=== PATIENT | female | born 1995 | race Caucasian/White ===

== ENCOUNTER 2024-06-20 11:24 | Outpatient (RCR) | payer OTHER, SELFPAY | END 2024-06-20 23:59 | disposition home or self-care (01) | LOC: RPT 11:24 | PROVIDERS: ATTENDING PHYSICIAN Internal Medicine; FAMILY PHYSICIAN Family Medicine | DX: R10.2 Pelvic and perineal pain (principal); R15.9 Full incontinence of feces; M62.89 Other specified disorders of muscle; N94.2 Vaginismus; Z73.6 Limitation of activities due to disability | CPT/HCPCS: 97010; 97110; 97112; 97140; 97162; 97530 ==

== ENCOUNTER 2024-07-14 10:07 | Outpatient (RCR) | payer OTHER, SELFPAY | END 2024-07-14 23:59 | disposition home or self-care (01) | LOC: RPT 10:07 | PROVIDERS: ATTENDING PHYSICIAN Internal Medicine; FAMILY PHYSICIAN Family Medicine | DX: R15.9 Full incontinence of feces (principal); M62.89 Other specified disorders of muscle; R10.9 Unspecified abdominal pain; N94.2 Vaginismus; Z73.6 Limitation of activities due to disability | CPT/HCPCS: 97110; 97112; 97140; 97530 ==

== ENCOUNTER → 2024-12-21 09:07 | Outpatient (REF) | payer OTHER, SELFPAY | LOC: RCS 09:07 | PROVIDERS: ATTENDING PHYSICIAN Internal Medicine Cardiovascular Disease; FAMILY PHYSICIAN Family Medicine; REFERRING PHYSICIAN Psychiatry & Neurology Forensic Psychiatry | DX: R00.2 Palpitations (principal) | CPT/HCPCS: 93306 ==

== ENCOUNTER → 2024-12-25 09:07 | Outpatient (REF) | payer OTHER, SELFPAY | LOC: RCS 09:07 | PROVIDERS: ATTENDING PHYSICIAN Internal Medicine Cardiovascular Disease; FAMILY PHYSICIAN Family Medicine | DX: R06.09 Other forms of dyspnea (principal) | CPT/HCPCS: 93017 ==

== ENCOUNTER 2025-01-20 06:45 | Inpatient (IN) | payer OTHER, SELFPAY ==
[2025-01-20] VITALS (8 sets, daily range): BP systolic 104–136; BP diastolic 70–97; BMI 38.0; BMI 37.9
[2025-01-20 01:30] LABS: % Basophils 0.7 % (0-2); % Eosinophils 3.6 % (0-6); % Immature Granulocytes 0.2 % (0-0.5); % Lymphocytes 47.5 % (20.5-51.1); % Monocytes 7.3 % (1.7-9.3); % Neutrophils 40.7 % (42.2-75.2); Absolute Basophils 0.1 10^3/uL (0-0.2); Absolute Eosinophils 0.3 10^3/uL (0-0.7); Absolute Lymphocytes 4.3 10^3/uL (1.2-3.4); Absolute Monocytes 0.7 10^3/uL (0.1-0.6); Absolute Neutrophils 3.7 10^3/uL (1.4-6.5); Hematocrit 43.4 % (37.0-47.0); Hemoglobin 14.3 g/dL (12.0-16.0); Mean Corp Hgb Conc. 32.9 g/dL (33.0-37.0); Mean Corpuscular Hgb 28.7 pg (27.0-31.0); Mean Platelet Volume 9.7 fL (7.4-10.4); Nucleated Red Blood Cells % 0 %; Platelet Count 344 10^3/uL (130-400); Red Blood Cell Count 4.99 10^6/uL (4.20-5.40); White Blood Cell Count 9.1 10^3/uL (4.8-10.8)
[2025-01-20 01:39] LABS: HCG, Serum Qualitative Screen Negative
[2025-01-20 01:43] LABS: ALT (SGPT) 161 U/L (0-35); AST (SGOT) 195 U/L (14-36); Albumin 4.4 g/dl (3.5-5.0); Alkaline Phosphatase 163 U/L (38-126); Blood Urea Nitrogen 15 mg/dl (7-17); Calcium 9.8 mg/dl (8.4-10.2); Carbon Dioxide 21 mmol/L (22-30); Chloride 104 mmol/L (98-107); Glucose 100 mg/dl (70-99); Lipase 170 U/L (23-300); Sodium 138 mmol/L (135-145); Total Bilirubin 3.3 mg/dl (0.2-1.3); Total Protein 8.2 g/dl (6.3-8.2); eGFR > 60.00
--- NOTE | 2025-01-20 05:23 | ED.GENMED ---
History of Present Illness
General
Chief Complaint: Abdominal Pain
Source: patient
Exam Limitations: none
Time Seen by Provider: 01/20/25 04:56
Nursing documentation reviewed up to this point in time: agreed with
History of Present Illness
History of Present Illness:
This is a 29-year-old obese woman with history of GERD, anxiety/depression. She complains of several month history of intermittent episodes of epigastric pain, usually occurs at nighttime versus first thing in the morning, accompanied with nausea,
lasts several hours then resolves. She had similar episode 24 hours ago waking her from sleep that was severe in nature associated with nausea and multiple episodes of vomiting. Generalized upper abdominal pain radiated to her shoulders. Pain has
markedly improved, she does continue with mild epigastric ache, no further nausea nor vomiting and has not had a fever but she is concerned this evening with her urine being quite dark in color and also notes generalized itching without a rash that
began tonight.
Her daily medications include: Omeprazole, Seroquel, Lexapro, iron, B12, vitamin C, vitamin D, control pills
Last menstrual period January 02, normal and on time.
Past History
Past History
ED Past Medical History: GERD (Hiatal hernia), Psychiatric and Other (Bipolar disorder, depression)
ED Past Surgical History: None
Social History
Tobacco: Non-smoker
Alcohol: None
Drug: None
Personal: Single
Living: with family
Employment: Employed
Family History
Family History: Other (Noncontributory)
Phy Exam
Physical Exam
Physical Exam:
GENERAL: 29-year-old overweight woman appears her stated age, bright and alert, pleasant, appears in no acute distress.
EYE: pupils equal and reactive. Very minimally icteric.
NECK: Supple, nontender, no meningismus, no significant adenopathy.
ENT: oral mucosa is moist. No rhinorrhea.
CARDIAC: Regular rate and rhythm. no murmur.
LUNGS: Clear breath sounds bilaterally, no acute respiratory distress, no wheezes/rales/rhonchi
ABDOMEN: Soft, nondistended, mild tenderness palpation epigastric region as well as mildly to the right upper quadrant, no r/g, no cvat. normoactive BS.
NEUROLOGICAL: Alert and oriented x3, no focal neuro deficits. Gait is steady.
SKIN: Warm and dry, normal color, skin intact. No rash.
MUSCULOSKELETAL: No C/C/E. peripheral pulses are full and equal b/l. No palpable tenderness.
PSYCH: Normal and appropriate interaction.
Course
Orders/Labs/Results
Orders:
Orders
01/20/25 01:08
Test Result ONCE
01/20/25 01:16
Complete Blood Count/With Diff Urgent
Comprehensive Metabolic Panel Urgent
HCG, Serum Qualitative Screen Urgent
Lipase Urgent
01/20/25 04:15
US Abdomen Complete/Upper Urgent
Comment:
Reason For Exam: upper abd pain, liver enz elevated
Abnormal Lab Results
01/20/25
01:16
MCHC 32.9 L g/dL
(33.0-37.0)
Absolute Lymphs (auto) 4.3 H 10^3/uL
(1.2-3.4)
Absolute Monos (auto) 0.7 H 10^3/uL
(0.1-0.6)
Neutrophils % 40.7 L %
(42.2-75.2)
Carbon Dioxide 21 L mmol/L
(22-30)
Glucose 100 H mg/dl
(70-99)
Total Bilirubin 3.3 H mg/dl
(0.2-1.3)
AST 195 H U/L
(14-36)
ALT 161 H U/L
(0-35)
Alkaline Phosphatase 163 H U/L
(38-126)
01/20/25 01:16
03/01/25 01:16
Vital Signs
Initial and Last Documented VS:
Initial Vital Signs
Temp Pulse Resp BP Pulse Ox
98.8 F 81 20 136/97 99
01/20/25 01:01 01/20/25 01:01 01/20/25 01:01 01/20/25 01:01 01/20/25 01:01
Last Documented Vital Signs
Temp Pulse Resp BP Pulse Ox
97.8 F 66 18 136/79 96
01/20/25 04:11 01/20/25 04:11 01/20/25 04:11 01/20/25 04:11 01/20/25 04:11
MDM/Problems Addressed
Differential Diagnosis Includes:
Concern for biliary colic, cholecystitis, pancreatitis, gastritis, gastroenteritis.
Labs are remarkable for elevated LFTs in the 160s, elevated bilirubin of 3.3, elevated alkaline phosphatase. CBC is normal. Lipase is normal.
Due to elevated LFTs concern for cholecystitis, choledocholithiasis, abdominal ultrasound obtained.
Ultrasound shows cholelithiasis but no evidence of cholecystitis, no definitive evidence of choledocholithiasis with normal common bile duct of 5 mm.
With elevated LFTs and elevated bilirubin, there is still some concern for occult choledocholithiasis.
Case discussed with general surgery who recommends patient be evaluated by GI first especially with concern for potential choledocholithiasis.
Will admit to hospitalist service.
Will initiate IV antibiotic for coverage of potential cholecystitis. Will initiate IV fluids.
*Radiology
Radiology exam reviewed: radiology read reviewed
*Pulse Oximetry
Patient hypoxic: no
*Critical Care Note
Total Time (30-74mins, 75-104mins- exclusive of procedures): Not Applicable
ED Attending Note
-
Portions of this chart may have been created with voice recognition software.� Occasional wrong word or��sound alike� substitutions may have occurred due to the inherent limitations of voice recognition software.
Discharge Plan
Departure
Patient Disposition: Admit
Date of Disposition: 01/20/25
Time of Disposition: 05:25
Admit to: Med/Surg
Admit to doctor: Maribel
Presentation/result/management discussed w/ accepting MD/DO: Hospitalist
Condition: Fair
Discharge Problem:
Cholelithiasis, Concern for common bile duct stone, Concern for cholecystitis
Referrals:
Simi Rausch DO [Family Provider] -
Interventions
Interventions:
*Risk Screen - Suicide Last Done: 01/20/25 01:01
*General Assessment Last Done: 01/20/25 04:11
*Neglect/Abuse Screening Last Done: 01/20/25 04:11
ED- Fall Risk Assessment Last Done: 01/20/25 04:11
*ED COVID-19 Vaccine History Last Done: 01/20/25 04:11
CJ-Wdzwwd-Pqqrfgdijs Assessment Last Done: 01/20/25 04:11
Discharge Date and Time
Print Language: SAMOAN
[2025-01-20] MEDS: ZOSYN 100 IV (05:43)
[2025-01-20] MEDS: NSS 1000 IV (05:46)
--- NOTE | 2025-01-20 05:59 | HPS.HSE ---
Family Physician
-
Family Physician: Simi Rausch
Chief Complaint
-
Abdominal pain
History of Present Illness
This is a 29-year-old with past medical history significant for bipolar/anxiety and GERD who presents to the emergency department with acute worsening of abdominal discomfort.
Patient reports history of intermittent abdominal pain/attacks throughout the last several months. She describes this usually resolves on their own with some treatment such as application of a warm pad. She reports that she had a similar episode
last night that was more severe with epigastric pain radiating to the back and associated with nausea and vomiting. She applied her usual measures including warm pads in her epigastric region without any improvement in her pain. The vomiting was
nonbloody and nonbilious. This a.m. she felt slightly improved but the pain recurred. At this time she noticed that she had generalized pruritus and dark-colored urine. She denies any changes to the color of her skin or eyes.
She denies having any diarrhea. She denies fevers or chills. She denies any urinary symptoms. She denies having any chest pain.
On arrival in the emergency department she reports afebrile, blood pressure was normal at 136/79 with a pulse of 76 and she was satting 100% on room air. CBC was unremarkable, electrolytes BUN/creatinine were also unremarkable. She had significant
LFT abnormalities with total bilirubin of 3.3, elevations of AST to 195 and ALT to 160 as well as alk phos 160. Lipase was negative.
Right upper quadrant ultrasound showing an enlarged liver measuring about 19 cm, cholelithiasis without cholecystitis, negative Mena sign and a common bile duct that is normal at 5 mm. No obvious biliary duct stones.
Medical History
Past Medical History
Past Medical History: Reports GERD, Psychiatric (Bipolar, anxiety/depression, OCD) and Other (restless leg syndrome)
Past Surgical History: Reports Other (tooth extraction)
Social History
Tobacco: Non-smoker
Alcohol: Former
Drug: None
Personal: Single
Living: With Family
Employment: Employed
Family History
Family History: Not pertinent
Allergies / Home Medications
Allergies reflects when Allergies were last updated in [employer].
Home Medications with original date entered in [employer]
Allergy/Medication List:
Allergies
Allergy/AdvReac Type Severity Reaction Status Date / Time
codeine Allergy psychosis Verified 04/19/23 11:08
Quetiapine 200 mg tablet, 200 mg p.o. every morning, 400 mg p.o. nightly
Lexapro 20 mg tablet, 20 mg p.o. daily
Omeprazole 20 mg tablet, 20 mg p.o. daily
Review of Systems
-
History Source: Patient
Constitutional: Reports No Symptoms
EENT: Reports No Symptoms
Respiratory: Reports No Symptoms
Cardiac: Reports No Symptoms
Abdomen/GI: Reports Abdominal Pain, Nausea and Vomiting
: Reports No Symptoms
Musculoskeletal: Reports No Symptoms
Skin: Reports No Symptoms
Neurological: Reports No Symptoms
Endocrine: Reports No Symptoms
Hematologic/Lymphatic: Reports No Symptoms
Psych: Reports No Symptoms
Physical Exam
Vital Signs
Vital Signs
Temp Pulse Resp BP Pulse Ox
97.8 F 66 18 113/71 99
01/20/25 04:11 01/20/25 04:11 01/20/25 04:11 01/20/25 05:00 01/20/25 05:45
Physical Exam
General: Well Developed, Well Nourished, No Apparent Distress and Comfortable
HEENT: NormoCephalic, Anicteric, Moist mucous membranes and Atraumatic
Respiratory: Clear
Cardiac: S1/S2 and Regular Rhythm
Breast: Deferred by me
GI: Soft, Non Tender, Non Distended and Normal Bowel Sounds
Rectal: Deferred by Provider
Genito-urinary: Deferred by me
Musculoskeletal: No Clubbing, No Cyanosis and No Edema
Skin: Warm
Neuro: AO x 3 and Nonfocal/grossly intact
Hematologic/Lymphatic: No Lymphadenopathy
Psych: Calm
Laboratory Results
-
01/20/25 01:16
01/20/25 01:16
Laboratory Results
Total Bilirubin 3.3 mg/dl (0.2-1.3) H 01/20/25 01:16
AST 195 U/L (14-36) H 01/20/25 01:16
ALT 161 U/L (0-35) H 01/20/25 01:16
Alkaline Phosphatase 163 U/L (38-126) H 01/20/25 01:16
Lipase 170 U/L (23-300) 01/20/25 01:16
Data Reviewed
-
Ultrasound: Report Reviewed by me
Lab Data: Labs Reviewed by me
Old Records: Reviewed
Impression/Plan
-
IMPRESSION:
29 y.o with cholelithiasis and elevated LFTs with cholestatic pattern concerning for choledocholithiasis. No evidence of acute cholecystitis. Does not meet criteria for acute cholangitis.
PLAN:
Cholelithiasis with possible choledocholithiasis - So far lipase negative, possible there was a transient stone given normal CBD on u/s
- admit to med/surg
- clear liquid diet for now
- trend lfts
- mrcp in am
- blood cultures if spike
- abx started in ED, does not meet criteria for peritonitis, will continue w/ ceftriaxone/flagyl for now
- IV fluids
- GI consult
- surgery consult
Psych
- continue lexapro and quetiapine
- h/o psychosis with codeine, monitor carefully on pain meds, toradol for moderate pain, dilaudid 0.25 if severe pain
DVT PPX - lovenox sq
Code status - Full Code
--- NOTE | 2025-01-20 07:40 | PTCARENOTE ---
Received patient from ED. Patient here with Cholelithiasis. Awaiting MRI.
[2025-01-20] MEDS: LR 1000 IV (08:04)
--- NOTE | 2025-01-20 09:15 | W.PN.UPDATE ---
Update Note
Progress Note Update
29-year-old female presented with abdominal pain she also noticed pruritus and also dark urine LFTs were found to be elevated in the ER
EKG reviewed by me-sinus rhythm QTc 441
Ultrasound-cholelithiasis, borderline hepatomegaly CBD, 5 mm
CVS: S1-S2 normal
Chest: CTA B/L
Abdomen: Soft, NT / Bowel sounds present
Extremities: No edema, normal pulses
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
# Cholelithiasis with biliary colic
On clears
MRI/MRCP ordered
Continue antibiotics, IV fluids
Benadryl for itching
Surgery and GI consulted
# Bipolar disease/anxiety
Severe depression on screening
Continue Lexapro, Seroquel
History of psychosis with codeine-need to be careful with narcotics
Psychiatric evaluation
# History of abnormal thyroid function test-repeat
# Obesity per BMI criteria
# DVT prophylaxis-Lovenox
# Full code
Discussed with nursing
Discussed with sister at bedside
Discussed with GI
Discussed with surgeon
[2025-01-20] MEDS: FLAGYL 500 MG 100 IV ×2 (09:27→21:05)
[2025-01-20] MEDS: BENADRYL 25 MG PO (11:52)
--- NOTE | 2025-01-20 12:28 | CON.GS ---
Consultation
-
Date/Time Consultation Requested: 01/20/25 3233
Requesting Provider: Darryn
Reason for Consultation: Cholelithiasis
Medical History
-
Chief Complaint: RUQ pain
History of Present Illness:
Ms Zimmer is a 29 yo female with a h/o bipolar/anxiety, GERD who presented through the ED with upper abdominal discomfort. She notes that over the past months, she has had intermittent attacks of epigastric pain radiating into her back. Yesterday,
she had another episode which felt more severe and was accompanied by nausea and vomiting. She presented through the ED for evaluation as her pain initially improved but then returned quickly unlike prior episodes. She note pruritis to her palms and
trunk and dark urine but no jaundice to the skin. She currently is without pain and is nontender on exam. She denies active nausea. She denies fevers or chills.
Past Medical History
Past Medical History: GERD, Psychiatric (bipolar/anxiety) and Other (obesity)
Past Surgical History: Other (dental)
Social History
Tobacco: Non-Smoker
Alcohol: Former
Family History
Family History: Reviewed & Not Pertinent
Allergies / Home Medications
Allergy/AdvReac Type Severity Reaction Status Date / Time
codeine Allergy psychosis Verified 04/19/23 11:08
�Medication �Instructions �Recorded �Confirmed �Type
drospirenone 3 mg-ethinyl 1 tab PO DAILY 01/20/25 01/20/25 History
estradiol 0.02 mg tablet (Vestura
(28))
escitalopram oxalate 20 mg tablet 20 mg PO DAILY 01/20/25 01/20/25 History
(Lexapro)
omeprazole 40 mg PO DAILY 01/20/25 01/20/25 History
quetiapine 200 mg tablet (Seroquel) 200 mg PO DAILY 01/20/25 01/20/25 History
quetiapine 400 mg tablet (Seroquel) 400 mg PO HS 01/20/25 01/20/25 History
Review of Systems
-
History Source: Patient and Family
All other systems: Negative unless noted
A 10 point review of systems was completed, and was negative except as per HPI.
Physical Exam
Vital Signs
Temp Pulse Resp BP Pulse Ox
98.4 F 74 16 127/95 99
01/20/25 07:40 01/20/25 07:40 01/20/25 07:40 01/20/25 07:40 01/20/25 07:40
01/19/25 01/20/25 01/21/25
06:59 06:59 06:59
Actual Weight 113.398 kg 113.035 kg
Body Mass Index (BMI) 37.9
Lab Results
01/20/25 01:16
01/20/25 01:16
WBC 9.1 10^3/uL (4.8-10.8) 01/20/25 01:16
Hgb 14.3 g/dL (12.0-16.0) 01/20/25 01:16
Hct 43.4 % (37.0-47.0) 01/20/25 01:16
Plt Count 344 10^3/uL (130-400) 01/20/25 01:16
Abs Immat Gran (auto) 0.0 10^3/uL (0-0.05) 01/20/25 01:16
Neutrophils % 40.7 % (42.2-75.2) L 01/20/25 01:16
Physical Exam
General: Well Developed and Well Nourished
HEENT: Moist Mucous Membranes
Respiratory: Non Labored Respirations
GI: Soft, Non Tender and Non Distended
Skin: Warm and Dry
Neuro: Awake, Alert and AO x 3
Psych: Calm
Data Reviewed
-
Ultrasound: Report Reviewed by me, Discussed with Physician, Discussed with Patient and Discussed with Family
Labs: Labs Reviewed by me, Discussed with Patient and Discussed with Family
Assessment / Plan
-
29 yo female with a h/o bipolar/anxiety, GERD who presented through the ED with upper abdominal discomfort/epigastric pain and h/o recurrent biliary colic over the past months. LFT's elevated with bilirubin of 3.3 on presentation. Lipase normal. No
leukocytosis. US with cholelithiasis without evidence of cholecystitis. AFVSS. Pain currently resolved. Suspect choledocholithiasis vs passage of stone
--MRCP pending
--GI eval pending
--No plans for surgery this weekend
--Would recommend eventual cholecystectomy, timing TBD pending further workup. If MRCP with noted choledocholithiasis, would need ERCP prior to surgery.
--- NOTE | 2025-01-20 12:30 | CON.GI ---
Consultation
-
Date/Time Consultation Requested: 01/20/2025
Date/Time Consultation Performed: 01/20/2025
Requesting Provider: Hospitalist
Performing Provider: Edgard WATTS
Reason for Consultation: Elevated liver test, suspicious for choledocholithiasis
Medical History
Chief Complaint / HPI
Chief Complaint: Abdominal pain
History of Present Illness:
29-year-old female with history of bipolar, GERD admitted to ED with severe epigastric/right upper quadrant abdominal pain/nausea/vomiting for 1 day. Patient was getting intermittent abdominal pain since last summer. Not always related to meals.
Pain usually radiation to the back. Usually associated with nausea. Denies any fever or chills.
Past Medical History
Past Medical History: Other (GERD, Psychiatric (Bipolar, anxiety/depression, OCD) and Other (restless leg syndrome))
Past Surgical History: None
Social History
Tobacco: Non-Smoker
Alcohol: Former
Drug: None
Allergies / Home Medications
Allergy/AdvReac Type Severity Reaction Status Date / Time
codeine Allergy psychosis Verified 04/19/23 11:08
�Medication �Instructions �Recorded
drospirenone 3 mg-ethinyl 1 tab PO DAILY 01/20/25
estradiol 0.02 mg tablet (Vestura
(28))
escitalopram oxalate 20 mg tablet 20 mg PO DAILY 01/20/25
(Lexapro)
omeprazole 40 mg PO DAILY 01/20/25
quetiapine 200 mg tablet (Seroquel) 200 mg PO DAILY 01/20/25
quetiapine 400 mg tablet (Seroquel) 400 mg PO HS 01/20/25
Review of Systems
-
All other systems: A 12 pt ROS was Negative except as stated above in HPI
Vital Signs
Temp Pulse Resp BP Pulse Ox
98.4 F 74 16 127/95 99
01/20/25 07:40 01/20/25 07:40 01/20/25 07:40 01/20/25 07:40 01/20/25 07:40
Physical Exam
Exam
General: Well Developed and No Apparent Distress
Respiratory: Clear
Cardiac: S1/S2
GI: Soft, Non Tender, Non Distended and Normal Bowel Sounds
Results
WBC 9.1 10^3/uL (4.8-10.8) 01/20/25 01:16
Hgb 14.3 g/dL (12.0-16.0) 01/20/25 01:16
Hct 43.4 % (37.0-47.0) 01/20/25 01:16
MCV 87.0 fL (81.0-99.0) 01/20/25 01:16
Plt Count 344 10^3/uL (130-400) 01/20/25 01:16
Absolute Neuts (auto) 3.7 10^3/uL (1.4-6.5) 01/20/25 01:16
Sodium 138 mmol/L (135-145) 01/20/25 01:16
Potassium 4.0 mmol/L (3.5-5.1) 01/20/25 01:16
Chloride 104 mmol/L (98-107) 01/20/25 01:16
Carbon Dioxide 21 mmol/L (22-30) L 01/20/25 01:16
BUN 15 mg/dl (7-17) 01/20/25 01:16
Creatinine 0.8 mg/dL (0.6-1.0) 01/20/25 01:16
Calcium 9.8 mg/dl (8.4-10.2) 01/20/25 01:16
Total Bilirubin 3.3 mg/dl (0.2-1.3) H 01/20/25 01:16
AST 195 U/L (14-36) H 01/20/25 01:16
ALT 161 U/L (0-35) H 01/20/25 01:16
Alkaline Phosphatase 163 U/L (38-126) H 01/20/25 01:16
Lipase 170 U/L (23-300) 01/20/25 01:16
Diagnostic Image Results:
Prior GI Procedures:
EGD: 04/2022 for heartburn
Impression: - LA Grade B/C reflux esophagitis with no bleeding.
Biopsied.
- 3 cm hiatal hernia.
- Normal stomach. Biopsied. Negative for H. pylori
- Normal examined duodenum. Biopsied. Negative for celiac disease
Colonoscopy: 04/2022 for diarrhea
Normal colon/TI. Biopsy negative for microscopic colitis
Assessment / Plan
-
29-year-old female with history of bipolar/anxiety/GERD admitted with severe Upper abdominal pain associate with nausea and vomiting for 1 day. Patient was getting intermittent abdominal pain radiating to the back for the last few months. Denies
any fevers or chills. In ED labs�WBC 9.1/hemoglobin 14.3/platelets 344
AST 195/ALT 161/alkaline phosphatase 163/total bilirubin 3.3
Lipase 170
Ultrasound abdomen 01/20/2025
Cholelithiasis. No bile duct dilatation. No sonographic finding to suggest acute cholecystitis. Borderline hepatomegaly.
Patient denies any abdominal pain/nausea/vomiting this morning
-- Abdominal pain/elevated liver test /cholelithiasis on ultrasound abdomen-possible differential passed CBD stone versus biliary colic
--GERD - on PPI
plan
Will get MRI/MRCP
Monitor LFT
If MRCP showing any choledocholithiasis we will proceed with ERCP prior to cholecystectomy
will follow
Total Time Spent with Patient (in minutes): 55
-
-
Thank you for consultation and allowing me to participate in the patient's care. Please call the test automation architect GI physician during the after hours with any questions or concerns.
[2025-01-20] MEDS: ROCEPHIN 1000 MG IV (13:16)
[2025-01-20] MEDS: STERILE WATER FOR INJECTION 10 ML IV (13:16)
[2025-01-20] MEDS: FLUSH (NSS) 1 FLUSH IV ×2 (13:16→13:17)
--- NOTE | 2025-01-20 14:17 | W.PN.UPDATE ---
Update Note
Progress Note Update
Psychiatric evaluation dictated.
29 yo lady who has been diagnosed with Bipolar for about 10 years. She has a psychiatrist as well as a therapist at [facility] and has been reasonably stable on Seroquel 200 AM and 400 HS as well as Lexapro 20. Unfortunately her liver enzymes are
significantly elevated; it is a question if it is related to her psychotropics or independent of it. She is somewhat hypomanic but not fully manic, not agitated or aggressive. She was on numerous psychotropic meds in the past but this combination
apparently so far has worked the best. She has history of suicidal thoughts but never had a significant suicide attempt, was hospitalized for suicidal thoughts several years ago.
She reported suicidal thoughts to an RN today but she told me the thoughts are fleeting and she would not act on it. She is not psychotic.
I will order Ativan 1 mg on prn basis and will F/U.
Based on her medical condition we will have to decide if she can back on the Lexapro/Seroquel combination.
--- NOTE | 2025-01-20 15:03 | CM ---
ADM Dx - cholelithiasis; PMH - anxiety/Bipolor
Met with pt and her sister at bedside
Pt reports she lives with her mother, father and sister in a 2 story home; 2 steps to enter, 12 steps to 2nd fl
Independent at baseline, currently unemployed, drives
DME - none
HH - denies past hx
PCP - Charity Rausch
Pharm - [facility]
Reports has therapist and sees psych at [facility]. Has family support. Currently has no suicidal ideations. Had good eye contact and was engaged in conversion with her sister.
Plan - anticipate home no needs
[2025-01-20] MEDS: PROTONIX 40 MG PO (16:19)
[2025-01-20] MEDS: LEXAPRO 20 MG PO (16:19)
[2025-01-20] MEDS: SEROQUEL 200 MG PO (16:19)
[2025-01-20 18:21] LABS: ALT (SGPT) 114 U/L (0-35); AST (SGOT) 102 U/L (14-36); Albumin 4.4 g/dl (3.5-5.0); Alkaline Phosphatase 152 U/L (38-126); Direct Bilirubin 0.7 mg/dl (0.0-0.4); Total Bilirubin 1.6 mg/dl (0.2-1.3); Total Protein 7.5 g/dl (6.3-8.2)
[2025-01-20] MEDS: SEROQUEL 400 MG PO (21:06)
[2025-01-21] MEDS: LR 1000 IV (01:14)
[2025-01-21 05:36] LABS: Hematocrit 39.1 % (37.0-47.0); Hemoglobin 12.9 g/dL (12.0-16.0); Mean Corpuscular Hgb 29.1 pg (27.0-31.0); Mean Corpuscular Volume 88.3 fL (81.0-99.0); Mean Platelet Volume 10.2 fL (7.4-10.4); Platelet Count 280 10^3/uL (130-400); Red Blood Cell Count 4.43 10^6/uL (4.20-5.40); Red Cell Dist. Width 14.2 % (11.5-14.5); White Blood Cell Count 7.3 10^3/uL (4.8-10.8)
[2025-01-21 06:08] LABS: ALT (SGPT) 103 U/L (0-35); AST (SGOT) 62 U/L (14-36); Albumin 3.8 g/dl (3.5-5.0); Alkaline Phosphatase 131 U/L (38-126); Blood Urea Nitrogen 10 mg/dl (7-17); Calcium 9.1 mg/dl (8.4-10.2); Carbon Dioxide 23 mmol/L (22-30); Chloride 105 mmol/L (98-107); Estimated Creatinine Clearance > 125 ml/min; Glucose 106 mg/dl (70-99); Sodium 137 mmol/L (135-145); Total Bilirubin 1.2 mg/dl (0.2-1.3); Total Protein 6.6 g/dl (6.3-8.2); eGFR > 60.00
[2025-01-21 07:14] VITALS: BP 118/77
[2025-01-21] MEDS: PROTONIX 40 MG PO (08:24)
[2025-01-21] MEDS: LEXAPRO 20 MG PO (08:24)
[2025-01-21] MEDS: SEROQUEL 200 MG PO (08:24)
[2025-01-21] MEDS: NON-FORMULARY ITEM 1 TABLET PO (08:24)
--- NOTE | 2025-01-21 10:30 | W.PN.GS2 ---
Today's Communication / Plan
-
LFD
Dispo planning
Assessment / Plan
-
29 yo female with recurrent biliary colic presenting with RUQ pain (now resolved) and elevated LFT's (bilirubin now normalized) with cholelithiasis on imaging. No choledocholithiasis seen on MRCP. Suspect passed stone given clinical picture.
AFVSS
No Leukocytosis
Recommend cholecystectomy to prevent recurrence, discussed timing with patient. Offered surgery this admission given risk of recurrence. Patient wishes to wait until parents are back in town and would like to schedule as an outpatient. Will arrange
OP surgical follow up.
PO challenge with LFD, ok for discharge from surgical standpoint with close outpatient follow up if tolerating.
Subjective Data
-
Date of Service: January 21, 2025
Patient seen and examined at bedside. Denies pain. Denies n/v. Feels well overall.
Objective Data
-
Intake and Output
01/20/25 01/21/25 01/22/25
06:59 06:59 06:59
Intake Total 2660 / 2660
Balance 2660 / 2660
Intake:
Oral fluids 1760 / 1760
IV fluids (Total) 900 / 900
Other:
Number of approximated MODERATE 3
amounts of urine
Number of approximated LARGE 2
amounts of urine
Vital Signs
Temp Pulse Resp BP Pulse Ox
98.0 F 80 16 118/77 99
01/21/25 07:14 01/21/25 07:14 01/21/25 07:14 01/21/25 07:14 01/21/25 07:14
Lab Results
01/21/25 04:25
01/21/25 04:25
Calcium 9.1 mg/dl (8.4-10.2) 01/21/25 04:25
Total Bilirubin 1.2 mg/dl (0.2-1.3) 01/21/25 04:25
Direct Bilirubin 0.7 mg/dl (0.0-0.4) H 01/20/25 17:42
AST 62 U/L (14-36) H 01/21/25 04:25
ALT 103 U/L (0-35) H 01/21/25 04:25
Alkaline Phosphatase 131 U/L (38-126) H 01/21/25 04:25
Total Protein 6.6 g/dl (6.3-8.2) 01/21/25 04:25
Albumin 3.8 g/dl (3.5-5.0) 01/21/25 04:25
Physical Exam
-
NAD
ABD soft, nt, nd
Itching improved
--- NOTE | 2025-01-21 10:39 | W.PN.HOSP.TC ---
Today's Communication/Plan
-
discharge if tolerating diet
Assessment / Plan
Assessment / Plan
29-year-old female presented with abdominal pain she also noticed pruritus and also dark urine LFTs were found to be elevated in the ER
EKG reviewed by me-sinus rhythm QTc 441
Ultrasound-cholelithiasis, borderline hepatomegaly CBD, 5 mm
CVS: S1-S2 normal
Chest: CTA B/L
Abdomen: Soft, NT / Bowel sounds present
Extremities: No edema, normal pulses
MAP EDITOR: Non focal exam
# Cholelithiasis with biliary colic
Diet was advanced to low-fat diet last night patient tolerated
MRI/MRCP showed cholelithiasis. No evidence of choledocholithiasis or bile duct dilatation
Stop antibiotics and fluids
Patient wants to talk to Dr. Rausch before she gets surgery and wants to pursue this as well as outpatient.
She is aware that these attacks can happen if she does not get cholecystectomy
Surgery and GI eval appreciated
# Bipolar disease/anxiety
Severe depression on screening
Continue Lexapro, Seroquel
History of psychosis with codeine-need to be careful with narcotics
Psychiatric evaluation appreciated
# History of abnormal thyroid function test-repeat normal TSH
# Obesity per BMI criteria
# DVT prophylaxis-Lovenox
# Full code
Discussed with nursing
Discussed with family at bedside
Discussed with GI
Discussed with surgeon
Discussed with psyche
Patient wants outpatient cholecystectomy
Anticipated Discharge: Today
Subjective/Interval History
-
Date of Service: January 21, 2025
Objective Data
-
Labs:
Laboratory Results
01/21/25
04:25
WBC 7.3
Hgb 12.9
Hct 39.1
Plt Count 280
Sodium 137
Potassium 4.0
Chloride 105
Carbon Dioxide 23
BUN 10
Creatinine 0.8
Glucose 106 H
Calcium 9.1
Total Bilirubin 1.2
AST 62 H
ALT 103 H
Alkaline Phosphatase 131 H
Vital Signs:
Vital Signs
Temp Pulse Resp BP Pulse Ox
98.0 F 80 16 118/77 99
01/21/25 07:14 01/21/25 07:14 01/21/25 07:14 01/21/25 07:14 01/21/25 07:14
I&O
01/20/25 01/21/25 01/22/25
06:59 06:59 06:59
Intake Total 0 / 0
Balance 2659 / 2659
[2025-01-21] MEDS: FLUSH (NSS) IV ×2 (10:42→10:43)
[2025-01-21] MEDS: FLAGYL 500 MG IV (10:43)
[2025-01-21] MEDS: STERILE WATER FOR INJECTION IV (10:43)
[2025-01-21] MEDS: LR IV (10:43)
--- NOTE | 2025-01-21 10:47 | W.DS.TRANS ---
Addendum entered and electronically signed by Isadora Graves MD 01/21/25 13:32:
Dictation- [id number]
Original Note:
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
-
Discharge Instructions:
Discharge Diagnosis/Procedures Biliary colic
Bipolar disease
Diet Low Fat
Activity As tolerated
Driving Restrictions As prior to admission
Instructions:
Stand-Alone Forms:
Changes to Home Medications: No
Discharge Medications:
DC Medications w/original date entered in [facility]
drospirenone 3 mg-ethinyl estradiol 0.02 mg tablet (Vestura (28)) 1 tab PO DAILY Hormonal agent #0 tabs 01/21/25
escitalopram oxalate 20 mg tablet (Lexapro) 20 mg PO DAILY Mental Health/Anxiety #0 tabs 01/21/25
omeprazole 40 mg PO DAILY Gastrointestinal issue ##0 01/21/25
quetiapine 200 mg tablet (Seroquel) 200 mg PO DAILY Mental Health/Anxiety #0 tabs 01/21/25
quetiapine 400 mg tablet (Seroquel) 400 mg PO HS Mental Health/Anxiety #0 tabs 01/21/25
Home Medication Changes
Pending Results: No
[2025-01-21 12:24] VITALS: BP 127/70
--- NOTE | 2025-01-21 12:46 | CM ---
Pt for discharge today
Reports has ride home
Plan - home no needs
== END 2025-01-21 12:54 | disposition home or self-care (01) | DRG 445 ==
LOC: 2 SOUTH 06:45
PROVIDERS: ADMITTING PHYSICIAN Internal Medicine; ATTENDING PHYSICIAN Hospitalist; CONSULT PHYSICIAN Internal Medicine Gastroenterology; CONSULT PHYSICIAN Psychiatry & Neurology Psychiatry; CONSULT PHYSICIAN Surgery; EMERGENCY PHYSICIAN Emergency Medicine; FAMILY PHYSICIAN Internal Medicine
DX: K80.20 Calculus of gallbladder without cholecystitis without obstruction (principal); F31.89 Other bipolar disorder; R16.0 Hepatomegaly, not elsewhere classified; E66.9 Obesity, unspecified; R79.89 Other specified abnormal findings of blood chemistry; L29.9 Pruritus, unspecified; Z68.37 Body mass index [BMI] 37.0-37.9, adult
CPT/HCPCS: 74181; 76700; 80048; 80053; 80076; 83690; 84443; 84703; 85025; 85027; 93005; 96361; 96365; 99284

== ENCOUNTER → 2025-03-23 10:11 | Outpatient (REF) | payer OTHER, SELFPAY | LOC: WDC 10:11 | PROVIDERS: ATTENDING PHYSICIAN Family Medicine | DX: R22.9 Localized swelling, mass and lump, unspecified (principal); N64.59 Other signs and symptoms in breast | CPT/HCPCS: 76642; 77062; 77066 ==

== ENCOUNTER 2025-09-18 09:03 | Day surgery (SDC) | payer OTHER, SELFPAY ==
[2025-09-18] VITALS (10 sets, daily range): BP systolic 108–147; BP diastolic 73–114; BMI 39.3
--- NOTE | 2025-09-18 06:06 | ED.GENMED ---
History of Present Illness
<Kate Cole PA-C - Last Filed: 09/18/25 08:19>
General
Chief Complaint: Abdominal Pain
Source: patient and records
Exam Limitations: none
Time Seen by Provider: 09/18/25 05:55
History of Present Illness
History of Present Illness:
30yoF with a history of bipolar disorder, IBS, cholelithiasis, and hiatal hernia presenting with her father for evaluation of abdominal pain. She reports a burning pain in her epigastric region that woke her up from sleep around 3:30am. She is
also having nausea and had one episode of vomiting as well as one episode of diarrhea after eating last night. She tried Pepto-Bismol but vomited this up. She has a history of gallstones and this feels similar to her prior biliary colic episodes
although not as severe as when she was hospitalized in January 2025. She had soup with meatballs last night for dinner. No fevers, chest pain, shortness of breath. She was hospitalized from 01/20-01/21/25 for cholelithiasis and abdominal pain.
Bilirubin was 3.3 at time of presentation and she underwent MRCP which was negative for choledocholithiasis. It was recommended that she undergo cholecystectomy but she opted out of this.
Past History
<Kate Cole PA-C - Last Filed: 09/18/25 08:19>
Past History
ED Past Medical History: GERD (Hiatal hernia), Psychiatric and Other (Bipolar disorder, depression)
ED Past Surgical History: None
Social History
Tobacco: Non-smoker
Alcohol: None
Drug: None
Personal: Single
Living: with family
Employment: Employed
Family History
Family History: Other (Noncontributory)
Phy Exam
<Kate Cole PA-C - Last Filed: 09/18/25 08:19>
General Physical Exam
General Presentation: well appearing and no apparent distress
General Skin: warm and dry
General Habitus: normal
General Mental: alert
ENT Exam
ENT Exam: normocephalic
Pulmonary Exam
Pulmonary Exam: no respiratory distress
Gastrointestinal Exam
Gastrointestinal Exam: soft, non distended and other (+Tenderness in epigastric and RUQ tenderness. Abdomen soft, non-distended. No guarding.)
Neurological Exam
Neurological Exam: alert
Johnny Coma Scale
Eye Opening: Spontaneous
Verbal Response: Oriented
Motor Response: Obeys Commands
GCS Total Score: 15
Skin Exam
Skin Exam: normal color and warm/dry
Psychiatric Exam
Psychiatric Exam: normal mood/affect
Course
[place];Kate Cole PA-C - Last Filed: 09/18/25 08:19>
Orders/Labs/Results
Orders:
Orders
09/18/25 05:43
Cardiac Monitoring- Treatment ONCE
IV Insert/Care/Rem.- Treatment PRN
09/18/25 05:44
Test Result ONCE
09/18/25 05:59
Complete Blood Count/With Diff Urgent
Comprehensive Metabolic Panel Urgent
HCG, Serum Qualitative Screen Urgent
Comment: Notify provider if positive test present
Lipase Urgent
Urinalysis Reflex To Culture Urgent
Date Specimen was Collected: 09/18/25
Time Specimen was Collected: 05:44
Urine Microscopic Reflex Cult Urgent
09/18/25 06:05
0.9% Sodium Chloride 1000 ml [Nss] 1,000 ml IV BOLUS
Ketorolac [Toradol] 15 mg IV NOW STA
US Abdomen Complete/Upper Urgent
Comment:
Reason For Exam: epigastric, RUQ pain
09/18/25 07:21
SURGICAL CONSULT Urgent
Consulting Provider: Scottie Mendez
Was physician already notified: Yes
09/18/25 07:27
Fentanyl Citrate/Pf [Sublimaze] 25 mcg IV [id number]-[id number] PRN
HYDROmorphone [Dilaudid] 0.25 mg IV PACU-Q5MPRN PRN
HYDROmorphone [Dilaudid] 0.5 mg IV PACU-Q5MPRN PRN
Ondansetron Injectable [Zofran] 4 mg IV PACU-ONCEPRN PRN
Prochlorperazine [Compazine] 5 mg IV PACU-ONCEPRN PRN
Notify MD As Directed
Notify physician if: for SDS patients with known or suspected sleep obstructive sleep apnea, monitor in the
PACU.
Notify MD for any apneic/desaturation episodes
O2 Therapy [RESP] Urgent
Titrate/Wean O2 to maintain O2 sat greater than (%): 92
Special Instructions: -Provide supplemental oxygen to achieve O2 sat of 92% or greater.
-After 15 min, may wean O2 and discontinue if patient is able to maintain O2 sat of 92%
or greater during recovery period.
If patient is a discharge home, without oxygen therapy, notify anestheiologist if
unable to maintain O2 SAT of 92% or greater on room air for MD clearance.
09/18/25 07:30
Normosol (Mult Electrolytes) [Normosol-R/Plasmalyte-A] 1,000 ml IV PER PROTOCOL
09/18/25 07:53
Acetaminophen [Tylenol] 650 mg PO Q4HPRN PRN
09/18/25 08:00
Flush (0.9% Sodium Chloride) [Flush (Nss)] See Dose Instructions IV PER PROTOCOL
Piperacillin/Tazo 3.375 Gram [Zosyn] 3.375 gram in 50 ml IV Q6H
Abnormal Lab Results
09/18/25
05:59
MCHC 32.8 L g/dL
(33.0-37.0)
Absolute Lymphs (auto) 3.5 H 10^3/uL
(1.2-3.4)
Absolute Monos (auto) 0.8 H 10^3/uL
(0.1-0.6)
Glucose 106 H mg/dl
(70-99)
Ur Occult Blood Reflex 1+ A
(Negative)
09/18/25 05:59
09/18/25 05:59
Vital Signs
Initial and Last Documented VS:
Initial Vital Signs
Temp Pulse Resp BP
98 F 80 20 145/114
09/18/25 05:37 09/18/25 05:37 09/18/25 05:37 09/18/25 05:37
Last Documented Vital Signs
Temp Pulse Resp BP Pulse Ox
98 F 66 19 108/75 95
09/18/25 05:37 09/18/25 07:00 09/18/25 06:15 09/18/25 07:00 09/18/25 07:00
<Ariella Montelongo MD - Last Filed: 09/18/25 06:18>
Orders/Labs/Results
Orders:
Orders
09/18/25 05:43
Cardiac Monitoring- Treatment ONCE
IV Insert/Care/Rem.- Treatment PRN
09/18/25 05:44
Test Result ONCE
09/18/25 05:59
Complete Blood Count/With Diff Urgent
Comprehensive Metabolic Panel Urgent
HCG, Serum Qualitative Screen Urgent
Comment: Notify provider if positive test present
Lipase Urgent
Urinalysis Reflex To Culture Urgent
Date Specimen was Collected: 09/18/25
Time Specimen was Collected: 05:44
Urine Microscopic Reflex Cult Urgent
09/18/25 06:05
0.9% Sodium Chloride 1000 ml [Nss] 1,000 ml IV BOLUS
Ketorolac [Toradol] 15 mg IV NOW STA
US Abdomen Complete/Upper Urgent
Comment:
Reason For Exam: epigastric, RUQ pain
09/18/25 07:21
SURGICAL CONSULT Urgent
Consulting Provider: Scottie Mendez
Was physician already notified: Yes
09/18/25 07:27
Fentanyl Citrate/Pf [Sublimaze] 25 mcg IV [id number] PRN
HYDROmorphone [Dilaudid] 0.25 mg IV PACU-Q5MPRN PRN
HYDROmorphone [Dilaudid] 0.5 mg IV PACU-Q5MPRN PRN
Ondansetron Injectable [Zofran] 4 mg IV PACU-ONCEPRN PRN
Prochlorperazine [Compazine] 5 mg IV PACU-ONCEPRN PRN
Notify MD As Directed
Notify physician if: for SDS patients with known or suspected sleep obstructive sleep apnea, monitor in the
PACU.
Notify MD for any apneic/desaturation episodes
O2 Therapy [RESP] Urgent
Titrate/Wean O2 to maintain O2 sat greater than (%): 92
Special Instructions: -Provide supplemental oxygen to achieve O2 sat of 92% or greater.
-After 15 min, may wean O2 and discontinue if patient is able to maintain O2 sat of 92%
or greater during recovery period.
If patient is a discharge home, without oxygen therapy, notify anestheiologist if
unable to maintain O2 SAT of 92% or greater on room air for MD clearance.
09/18/25 07:30
Normosol (Mult Electrolytes) [Normosol-R/Plasmalyte-A] 1,000 ml IV PER PROTOCOL
09/18/25 07:53
Acetaminophen [Tylenol] 650 mg PO Q4HPRN PRN
09/18/25 08:00
Flush (0.9% Sodium Chloride) [Flush (Nss)] See Dose Instructions IV PER PROTOCOL
Piperacillin/Tazo 3.375 Gram [Zosyn] 3.375 gram in 50 ml IV Q6H
Abnormal Lab Results
09/18/25
05:59
MCHC 32.8 L g/dL
(33.0-37.0)
Absolute Lymphs (auto) 3.5 H 10^3/uL
(1.2-3.4)
Absolute Monos (auto) 0.8 H 10^3/uL
(0.1-0.6)
Glucose 106 H mg/dl
(70-99)
Ur Occult Blood Reflex 1+ A
(Negative)
09/18/25 05:59
09/18/25 05:59
Vital Signs
Initial and Last Documented VS:
Initial Vital Signs
Temp Pulse Resp BP
98 F 80 20 145/114
09/18/25 05:37 09/18/25 05:37 09/18/25 05:37 09/18/25 05:37
Last Documented Vital Signs
Temp Pulse Resp BP Pulse Ox
98 F 66 19 108/75 95
09/18/25 05:37 09/18/25 07:00 09/18/25 06:15 09/18/25 07:00 09/18/25 07:00
<Kate Cole PA-C - Last Filed: 09/18/25 08:19>
MDM/Problems Addressed
Differential Diagnosis Includes:
30yoF here with epigastric pain that woke her up in the middle of the night. Associated with n/v. Hx of gallstones and this feels similar. VSS. Patient appears comfortable in no distress. No signs of peritonitis on abdominal exam. Differential
diagnosis includes: Biliary colic, cholecystitis, choledocholithiasis, pancreatitis, gastritis
Initial ED plan: Check abdominal labs, hCG, and upper abdominal ultrasound. IV Toradol and fluid bolus for symptoms.
<Kate Cole PA-C - Last Filed: 09/18/25 08:19>
*Pulse Oximetry
SaO2: 98
Oxygen Mode of Delivery: Room air
Patient hypoxic: no
*Critical Care Note
Total Time (30-74mins, 75-104mins- exclusive of procedures): Not Applicable
<Kate Cole PA-C - Last Filed: 09/18/25 08:19>
Update Note
Update Note:
Labs unremarkable including normal white count, LFTs, and lipase. Ultrasound shows multiple gallstones with borderline gallbladder wall thickening. Patient feeling improved after Toradol although still having some discomfort. General surgery
consulted and Dr. Mendez assessed patient at bedside. Plan for cholecystectomy this AM. Patient transferred to the OR for further care.
ED Attending Note
<Kate Cole PA-C - Last Filed: 09/18/25 08:19>
-
Portions of this chart may have been created with voice recognition software.� Occasional wrong word or��sound alike� substitutions may have occurred due to the inherent limitations of voice recognition software.
<Ariella Montelongo MD - Last Filed: 09/18/25 06:18>
ED Attending Note
Patient seen and examined by attending physician: Yes
I performed the substantive portion of visit, reviewed & personally made and approve the management plan that is documented in note by myself or MITCH.: Yes
ED Attending Note:
30-year-old female presents emergency department with complaints of epigastric abdominal 'burning' that started approximately 3:30 AM and awoke her from sleep. Pain is better but still present. She denies associated fever, chills, back pain, chest
pain, shortness of breath. Patient has a history of brandon lithiasis, declined cholecystectomy when she was hospitalized in January for similar symptoms. On exam, patient overall well-appearing and stable. She has mild tenderness to palpation noted
predominantly in the epigastric area and less so at the right upper quadrant. No rebound or guarding. No active vomiting. Workup in progress, consideration for cholelithiasis, cholecystitis, CBD stone, pancreatitis, gastritis, reflux, etc.
Discharge Plan
Departure
Patient Disposition: Admit
Date of Disposition: 09/18/25
Time of Disposition: 08:13
Presentation/result/management discussed w/ accepting /DO: Dr. Mendez
Discharge Problem:
Biliary colic
Prescriptions:
No Action
quetiapine [Seroquel] 200 mg Tablet
200 mg PO DAILY Qty: 0 0RF
escitalopram oxalate [Lexapro] 20 mg Tablet
20 mg PO DAILY Qty: 0 0RF
quetiapine [Seroquel] 400 mg Tablet
400 mg PO HS Qty: 0 0RF
drospirenone-ethinyl estradiol [Vestura (28)] 3-0.02 mg Tablet
1 tab PO DAILY Qty: 0 0RF
methylphenidate HCl 54 mg Tablet Extended Release 24hr
54 mg PO DAILY
omeprazole 40 mg Capsule,Delayed Release(Dr/Ec)
40 mg PO DAILY
ascorbic acid (vitamin C) [Vitamin C] 500 mg Tablet
500 mg PO DAILY
ferrous sulfate 325 mg (65 mg iron) Tablet
325 mg PO Q48H
cholecalciferol (vitamin D3) [Vitamin D3] 25 mcg (1,000 unit) Tablet
25 mcg PO DAILY
Referrals:
Charity Snow MD [Family Provider, Family Practice]
Interventions
Interventions:
*Risk Screen - Suicide Last Done: 09/18/25 05:37
*General Assessment Last Done: 09/18/25 06:02
*Neglect/Abuse Screening Last Done: 09/18/25 05:37
*ED- Fall Risk Assessment Last Done: 09/18/25 06:02
*ED COVID-19 Vaccine History Last Done: 09/18/25 06:02
*ED Influenza Vaccine History Last Done: 09/18/25 06:02
OR-Ivgrxa-Qqgzkxkxki Assessment Last Done: 09/18/25 06:55
Discharge Date and Time
Print Language: ITALIAN
[2025-09-18] MEDS: TORADOL 15 MG IV (06:11)
[2025-09-18] MEDS: NSS 1000 IV (06:11)
[2025-09-18 06:28] LABS: Urine Character Clear (Clear)
[2025-09-18 06:30] LABS: Hematocrit 42.4 % (37.0-47.0); Hemoglobin 13.9 g/dL (12.0-16.0); Mean Corp Hgb Conc. 32.8 g/dL (33.0-37.0); Mean Corpuscular Volume 87.4 fL (81.0-99.0); Nucleated Red Blood Cells % 0 %; Platelet Count 341 10^3/uL (130-400); Red Cell Dist. Width 13.2 % (11.5-14.5)
[2025-09-18 06:38] LABS: HCG, Serum Qualitative Screen Negative
[2025-09-18 07:01] LABS: ALT (SGPT) 20 U/L (0-35); AST (SGOT) 20 U/L (14-36); Albumin 4.4 g/dl (3.5-5.0); Alkaline Phosphatase 78 U/L (38-126); Blood Urea Nitrogen 14 mg/dl (7-17); Calcium 9.9 mg/dl (8.4-10.2); Carbon Dioxide 23 mmol/L (22-30); Chloride 102 mmol/L (98-107); Estimated Creatinine Clearance > 125 ml/min; Glucose 106 mg/dl (70-99); Lipase 113 U/L (23-300); Potassium 4.2 mmol/L (3.5-5.1); Sodium 138 mmol/L (135-145); Total Protein 7.8 g/dl (6.3-8.2); eGFR > 60.00
[2025-09-18] MEDS: ZOSYN 50 IV (08:06)
--- NOTE | 2025-09-18 08:07 | HPS.HSE ---
Family Physician
-
Family Physician: Charity Snow
Chief Complaint
-
Abdominal pain
History of Present Illness
Patient is a 30 yo F with a PMH of morbid obesity, GERD, bipolar disorder, IBS, and known symptomatic cholelithiasis who presents to the ER with an episode of epigastric abdominal pain. Symptoms began yesterday evening awaking her from sleep.
Prior meal of soup and meatballs. She states that she has had intermittent attacks over the past year and a half dating back to January 2024. She was previously evaluated in the ER back in January 2025 with similar though worse symptoms. Currently
she states that her pain is improved, but not completely resolved. Associated nausea and vomiting. No fevers or chills. She denies any jaundice, pale stools, or tea colored urine. Of note, she did have issues with jaundice and pruritus during
her prior attack in January.
Medical History
Past Medical History
Past Medical History: Reports GERD, Psychiatric (Bipolar disorder, depression/anxiety) and Other (Morbid obesity)
Past Surgical History: Reports None
Social History
Tobacco: Non-smoker
Alcohol: None
Drug: None
Family History
Family History: Not pertinent
Allergies / Home Medications
Allergies reflects when Allergies were last updated in [facility].
Home Medications with original date entered in [facility]
Allergy/Medication List:
NKDA
Review of Systems
-
A 12 point ROS was completed and negative except as noted: Yes
Physical Exam
Vital Signs
Vital Signs
Temp Pulse Resp BP Pulse Ox
98 F 66 19 108/75 95
09/18/25 05:37 09/18/25 07:00 09/18/25 06:15 09/18/25 07:00 09/18/25 07:00
Physical Exam
General: Well Developed, Well Nourished and No Apparent Distress
HEENT: NormoCephalic and Anicteric
Respiratory: Non Labored Respirations
Cardiac: Regular Rhythm
GI: Soft, Non Distended, Tender (Mild epigastric/RUQ, negative Mena sign) and Other (Nonperitoneal, morbid obesity)
Musculoskeletal: No Edema
Skin: Warm and Dry
Neuro: Nonfocal/grossly intact
Laboratory Results
-
09/18/25 05:59
09/18/25 05:59
Laboratory Results
Total Bilirubin 0.2 mg/dl (0.2-1.3) 09/18/25 05:59
AST 20 U/L (14-36) 09/18/25 05:59
ALT 20 U/L (0-35) 09/18/25 05:59
Alkaline Phosphatase 78 U/L (38-126) 09/18/25 05:59
Lipase 113 U/L (23-300) 09/18/25 05:59
Data Reviewed
-
Ultrasound: Image Personally Visualized and interpreted and Report Reviewed by me
Lab Data: Labs Reviewed by me
Old Records: Reviewed
Impression/Plan
-
IMPRESSION:
Patient is a 30 yo F p/w symptomatic cholelithiasis and possible acute on chronic cholecystitis
The natural history and pathophysiology of biliary and stone disease was discussed. Anatomy was reviewed utilizing pictorial images. Workup including ultrasound and labs were reviewed. Options for management including continued medical management
with a low-fat diet versus surgical management with cholecystectomy were considered and discussed. The pros and cons of both approaches was discussed. Specifically, we discussed the likelihood of persistent attacks and future episodes of
cholecystitis or choledocholithiasis versus surgical risks. Recommend cholecystectomy.
Plan for a laparoscopic cholecystectomy with possible cholangiogram. The procedure itself, as well as the risks, benefits, and alternatives was discussed. Specifically, we discussed the risks of bleeding, infection, injury to surrounding
structures (bowel, bile ducts), CBD injury, need for open procedure. Typical postprocedural recovery was discussed. Specifically, we discussed pain management, activity restrictions, and the 10 to 20% risks of fluctuations in GI function. All
questions answered. Consent signed.
PLAN:
-- Laparoscopic cholecystectomy with IOC
-- NPO, IVF
-- Abx: Zosyn
-- Dispo pending operative findings and recovery from anesthesia
--- NOTE | 2025-09-18 08:12 | W.SUR.PREOP ---
Pre-Operative Surgical Note
-
I have examined this patient prior to the performance of the scheduled procedure.
The patient's condition is unchanged from the time of the current History and
Physical and the patient is able to undergo the scheduled procedure.
[2025-09-18 08:16] LABS: Urine Red Blood Cell 0-2 /HPF (0-2)
--- NOTE | 2025-09-18 10:34 | W.IMMPOSTOP ---
Surgical Immed Post Op Note
-
Primary Surgeon: Vanessa
Assisting Surgeon: None
Pre-op Diagnosis: Acute cholecystitis
Post-op Diagnosis: Acute cholecystitis
Procedure Performed: Laparoscopic cholecystectomy with IOC, modifier 22 for obesity and fatty liver disease
Anesthesia Type: General
Specimen / Cultures:
1. Gallbladder
Estimated Blood Loss: 3 cc
Complications: None
Operative Findings:
1. Acutely inflamed GB, mild wall thickening, omental adhesions
2. Critical view of safety
3. IOC negative
4. Duct and artery taken with clips
[2025-09-18] MEDS: TYLENOL 650 MG PO (11:27)
[2025-09-18] MEDS: MOTRIN 600 MG PO (12:12)
== END 2025-09-18 12:16 | disposition home or self-care (01) ==
LOC: SDS 09:03
PROVIDERS: Student in an Organized Health Care Education/Training Program; ATTENDING PHYSICIAN Surgery; EMERGENCY PHYSICIAN Emergency Medicine; FAMILY PHYSICIAN Family Medicine
DX: K80.10 Calculus of gallbladder with chronic cholecystitis without obstruction (principal); K80.62 Calculus of gallbladder and bile duct with acute cholecystitis without obstruction; K66.0 Peritoneal adhesions (postprocedural) (postinfection)
CPT/HCPCS: 47563; 74300; 76000; 76700; 80053; 81003; 81015; 83690; 84703; 85025; 88304; 96365; 96375; 99285; A4300